=== PATIENT | female | born 1995 | race Caucasian/White ===

== ENCOUNTER → 2016-12-24 19:30 | Observation (INO) ==
[2016-12-24 19:50] LABS: Bilirubin,Urine Negative (Negative); Blood,Urine Negative (Negative); Clarity,Urine Cloudy (Clear); Color,Urine Yellow (Yellow); Glucose,Urine (UA) Normal (Normal); Ketones,Urine Negative (Negative); Leukocyte Esterase,Urine Small (Negative); Nitrite,Urine Negative (Negative); Protein,Urine Negative (Neg-Trace); Specific Gravity,Urine 1.014 (1.010-1.025); Urobilinogen,Urine Normal (Normal)
[2016-12-24 20:04] LABS: Amorphous Sediment,Urine Few (Few); Bacteria,Urine Few per hpf (None-Few); Hyaline Casts,Urine None Seen per lpf (None-Few); Squamous Epithelial Cell,Urine Moderate per lpf (None-Few)
[2016-12-24 20:05] LABS: RBC,Urine 0-3 per hpf (0-3); WBC,Urine 0-3 per hpf (0-3)
--- NOTE | 2016-12-24 20:15 | OB/GYN Progress Note ---
Date of Encounter: 12/24/16 Time of Encounter: 20:12 - Assessment and Plan (1) Abdominal pain affecting , antepartum Current Visit: Yes Status: Acute Pt states pain has decreased since arrival to triage. UA does not indicate UTI, Discharged home with rest and hydration. Discussed returning for evaluation if contractions greater than 6/hr., vaginal bleeding, or leaking of flluid. Pt in agreement with plan. (2) 20 weeks gestation of Current Visit: Yes Status: Acute Subjective - Subjective Interval history: 20+6 and states she has been having like a radiating pain that radiates from her mid abdomen throughout her back. Pt states she had one episode yesterday. Pt states she has been at work today and she has had it more frequently today than yesterday from moving around. She will feel tightness lasting sometimes 8- 10 minutes long that then releases. Pt states it happens a couple times an an hour. Reports good movement, denies vaginal bleeding and leaking of fluid. Antepartum ROS: new complaints, movement normal, no loss of fluid, no vaginal bleeding, no contractions Objective - Vital Signs Vital Signs: Intake and Output 12/24/16 12/24/16 12/24/16 07:59 15:59 23:59 Other: Weight 100 kg Patient Weight 12/24/16 23:59 Weight 100 kg - Exam FHR: auscultation normal FHR comments: present 140 Auscultation: bilateral: normal Abdomen: Present: normal appearance, soft, gravid Uterus: Present: normal - Labs Labs: Abnormal lab results Urine Clarity Cloudy (Clear) A 12/24/16 19:40 Ur Leukocyte Esterase Small (Negative) H 12/24/16 19:40 Ur Squamous Epith Cells Moderate per lpf (None-Few) H 12/24/16 19:40 Ur Culture Indicated? YES (NO) A 12/24/16 19:40
== END | disposition home or self-care (01) ==
LOC: 1NENULAB
PROVIDERS: ADMIT Advanced Practice Midwife; ATTEND Advanced Practice Midwife

== ENCOUNTER → 2017-01-16 13:06 | Observation (INO) ==
--- NOTE | 2017-01-16 13:00 | OB/GYN Progress Note ---
Date of Encounter: 01/16/17 Time of Encounter: 12:58 - Assessment and Plan (1) 24 weeks gestation of Current Visit: Yes Status: Acute (2) Vaginal discharge during in second trimester Current Visit: Yes Status: Acute Thick yellow white discharge noted on speculum exam, no pooling, nitrazine negative, ferning negative. Vaginosis panel obtained, will discharge to home and will call patient with results Subjective - Subjective Interval history: Patient states off and on over the last 2 days she has noticed her underwear has been wet and thought she was leaking, initially she attributed to increased perspiration, but today she was not doing any activity and notice her underwear was wet again. Patient state it does not smell like urine and she does not think she had uncontrolled urination. Patient reports movement, states it has been less than the previous, but fetus has been active today. No vaginal bleeding or complaints of itching, or other increased discharge Antepartum ROS: loss of fluid, movement normal, no vaginal bleeding, no contractions Objective - Exam FHR: auscultation normal FHR comments: 140 appropriate for gestational age Auscultation: bilateral: normal Abdomen: Present: normal appearance, soft, gravid Uterus: Present: normal Cervical dilation: Visually closed on speculum exam
[2017-01-16 13:07] LABS: Bilirubin,Urine Negative (Negative); Blood,Urine Negative (Negative); Clarity,Urine Clear (Clear); Color,Urine Yellow (Yellow); Glucose,Urine (UA) Normal (Normal); Ketones,Urine Negative (Negative); Leukocyte Esterase,Urine Moderate (Negative); Nitrite,Urine Negative (Negative); Protein,Urine Negative (Neg-Trace); Specific Gravity,Urine 1.012 (1.010-1.025); Urobilinogen,Urine Normal (Normal)
[2017-01-16 13:11] LABS: Amphetamine Screen,Urine Negative ng/mL (Cutoff=1000); Bacteria,Urine None Seen per hpf (None-Few); Barbiturate Screen,Urine Negative ng/mL (Cutoff=200); Benzodiazepines Screen,Urine Negative ng/mL (Cutoff=200); Cannabinoid Screen,Urine Negative ng/mL (Cutoff = 50); Cocaine Screen,Urine Negative ng/mL (Cutoff= 300); Hyaline Casts,Urine None Seen per lpf (None-Few); Opiate Screen,Urine Negative ng/mL (Cutoff=300); Phencyclidine Screen,Urine Negative ng/mL (Cutoff=25); RBC,Urine 0-3 per hpf (0-3); Squamous Epithelial Cell,Urine Many per lpf (None-Few)
[2017-01-16 13:58] LABS: Candida DNA ***DETECTED*** (Not Detect); Gardnerella DNA Not Detected (Not Detect); Trichomonas DNA Not Detected (Not Detect)
== END | disposition home or self-care (01) ==
LOC: 1NENULAB
PROVIDERS: ADMIT Obstetrics & Gynecology; ATTEND Obstetrics & Gynecology

== ENCOUNTER → 2017-03-03 13:07 | Observation (INO) ==
[2017-03-03 12:21] LABS: Bilirubin,Urine Negative (Negative); Blood,Urine Negative (Negative); Clarity,Urine Cloudy (Clear); Color,Urine Yellow (Yellow); Glucose,Urine (UA) Normal (Normal); Ketones,Urine Negative (Negative); Leukocyte Esterase,Urine Negative (Negative); Nitrite,Urine Negative (Negative); PH,Urine 7.5 pH Units (5.0-8.0); Protein,Urine Negative (Neg-Trace); Specific Gravity,Urine 1.015 (1.010-1.025); Urobilinogen,Urine Normal (Normal)
[2017-03-03 12:24] LABS: Bacteria,Urine Few per hpf (None-Few); Hyaline Casts,Urine None Seen per lpf (None-Few); RBC,Urine 0-3 per hpf (0-3); WBC,Urine 0-3 per hpf (0-3)
[2017-03-03 12:25] LABS: Amphetamine Screen,Urine Negative ng/mL (Cutoff=1000); Barbiturate Screen,Urine Negative ng/mL (Cutoff=200); Benzodiazepines Screen,Urine Negative ng/mL (Cutoff=200); Cannabinoid Screen,Urine Negative ng/mL (Cutoff = 50); Cocaine Screen,Urine Negative ng/mL (Cutoff= 300); Opiate Screen,Urine Negative ng/mL (Cutoff=300); Phencyclidine Screen,Urine Negative ng/mL (Cutoff=25)
[2017-03-03 12:36] LABS: Squamous Epithelial Cell,Urine Few per lpf (None-Few)
[2017-03-03 12:37] LABS: Amorphous Sediment,Urine Few (Few)
--- NOTE | 2017-03-03 12:54 | OB/GYN Progress Note ---
Date of Encounter: 03/04/17 Time of Encounter: 12:30 - Assessment and Plan (1) 30 weeks gestation of Status: Acute Nitrazine test was negative. No ferning observed on slide mount. Patient had a reactive NST test. UA was negative for infection. UDS was negative. - Patient will be discharged home. (2) Bacterial vaginosis Status: Acute Wet mount was positive for clue cells. - Metronidazole 500 mg PO BID 7 days (3) Vaginal yeast infection Status: Acute Wet mount positive for hyphae and budding yeast. - Tercanzole 45 gm cream daily #1 Subjective - Subjective Principal diagnosis: Labor evaluation Interval history: Patient is a 21 YO F at 30 weeks gestation that presents for labor evaluation. Patient says that 0830 am yesterday she woke up to find that her underwear was soaked. She says she noticed her underwear soaked gain this morning as well. She denies any regular contractions, but admits to some intermittent cramping this morning. She says that she had intercourse last night. She admits to good movement. She denies any vaginal bleeding. She denies any headaches, vision changes, chest pain, nausea, vomiting, fever, or dysuria. She does admit to diarrhea this morning but she denies any gross blood in her stool. HepBSAg: non-reactive (09/04/16) HIV Ag/Ab: non-reactive T. Pallidum: negative Rubella Ab: positive Varicella Ab: positive Blood Type: A+ Patient seen with the resident and agree with the above Antepartum ROS: loss of fluid, movement normal, no vaginal bleeding, no contractions Objective - Vital Signs Vital Signs: Intake and Output 03/03/17 03/03/17 03/03/17 00:59 07:59 15:59 Other: Weight 104.1 kg Patient Weight 03/03/17 22:59 Weight 104.1 kg BP: 124/72 HR: 100 FHR: 144 [place]: 24 - Exam FHR: auscultation normal Auscultation: bilateral: normal Abdomen: Present: normal appearance, soft, gravid Uterus: Present: normal, firm Cervical dilation: Closed/thick/NE Cervix effacement: thick station: -3 Comments: spec exam revealed nitrazine ferning pooling negative wth thick which discharge wet mount positive for BV and Isabela - Labs Labs: Abnormal lab results Urine Clarity Cloudy (Clear) A 03/03/17 12:07
== END | disposition home or self-care (01) ==
LOC: 1NENULAB
PROVIDERS: ADMIT Obstetrics & Gynecology; ATTEND Obstetrics & Gynecology

== ENCOUNTER → 2017-04-16 15:25 | Observation (INO) ==
[2017-04-16 12:18] LABS: Basophils # 0.2 K/mcL (0.0-0.2); Eosinophils # 0.1 K/mcL (0.0-0.6); Eosinophils % 0.4 %; Hematocrit 38.3 % (35.3-44.9); Hemoglobin 13.1 g/dL (11.5-15.4); Immature Granulocytes % 4.8 % (0-4); Lymphocytes % 10.6 %; Mean Corpuscular HGB Conc 34.2 g/dL (31.6-35.5); Mean Corpuscular Hemoglobin 30.5 pg (28.0-33.3); Mean Corpuscular Volume 89.3 fL (83.0-100.0); Monocytes # 1.2 K/mcL (0.0-1.3); Monocytes % 6.3 %; Neutrophils # 14.5 K/mcL (1.6-8.9); Platelet Count 142 K/mcL (140-400); Red Blood Count 4.29 M/mcL (3.82-4.97); Red Cell Distribution Width 14.8 % (11.5-14.5); Segmented Neutrophils % 76.9 %
[2017-04-16 12:24] LABS: Amphetamine Screen,Urine Negative ng/mL (Cutoff=1000); Barbiturate Screen,Urine Negative ng/mL (Cutoff=200); Benzodiazepines Screen,Urine Negative ng/mL (Cutoff=200); Cannabinoid Screen,Urine Negative ng/mL (Cutoff = 50); Cocaine Screen,Urine Negative ng/mL (Cutoff= 300); Opiate Screen,Urine Negative ng/mL (Cutoff=300); Phencyclidine Screen,Urine Negative ng/mL (Cutoff=25)
--- NOTE | 2017-04-16 12:49 | OB/GYN History & Physical ---
Date of Encounter: 04/16/17 Time of Encounter: 12:46 Assessment and Plan (1) Hypertension affecting in third trimester Current visit: Yes Status: Acute PIH labs - WNL NST - reactive category I tracing UDS - negative Serial blood pressures - mildly elevated. POC per consult with Dr Stock. Discharge home with Labetalol 100mg po BID Biweekly NSTs and weekly prenatals. Follow up in office on Saturday for NST and prn. PIH precautions given to patient. (2) Group B streptococcal carriage complicating Current visit: Yes Status: Acute (3) 37 weeks gestation of Current visit: Yes Status: Acute (4) Tachycardia Current visit: Yes Status: Acute IV fluids. Patient states she hasn't had a drink since yesterday History of Present Illness Chief complaint: Increased blood pressure HPI: Ms. Graham is a 22 year old at 37 weeks and 0 days gestation that presents to labor and delivery triage from the office. She has been having increased blood pressures at home for the past week that often are relieved by laying down. She c/o a headache that began on Saturday when she is upright, but is relieved by laying down. She had tunnel/blurry vision yesterday. She c/o mild upper respiratory symptoms that began last week. She states positive movement. She states she began madhuri this morning at 0600. She denies any vaginal bleeding or leaking of fluid. Labs: GBS positive Blood type A+ RPR negative HIV neg Hep B neg Varicella immune Rubella immune Past Med Surg Social Fam HX - Past Medical History Medical history: asthma Psychiatric history: no psych history - Social History Smoking Status: Never smoker Smokeless Tobacco Status: No Alcohol use: none Drug use: none - Family History Mother Living Status: Still Living Hx Family Cardiac Disorders: Yes Father Adopted: No Living Status: Still Living Hx Family Cardiac Disorders: Yes (unsure of diagnosis but has a history of heart issue) Hx Family Respiratory Disorders: No Hx Family Cancer: No Hx Family GI Disorders: No Hx Family Genitourinary Disorders: No Hx Family Endocrine Disorder: No Hx Family Musculoskeletal Disorders: No Hx Family Neuromuscular Disorders: No Hx Family Neurologic Disorders: No Hx Family HEENT Disorders: No Hx Family Autoimmune Disorders: No Hx Family Reproductive Disorders: No Hx Family Psychosocial Disorders: No Hx Family Medical Disorders: No Obstetrical History - Pregnancies : 2 Para: 0 Term: 0 : 0 Ab's: 1 Livin Medications and Allergies Aspirin 81 mg PO DAILY 01/16/17 [History] Calcium Carbonate [Calcium] 500 mg PO DAILY 01/16/17 [History] Ergocalciferol (VITAMIN D2) [Vitamin D] 400 unit PO DAILY 01/16/17 [History] Pnv Cmb#21/Iron/Folic Acid [ Complete Caplet] 1 tab PO DAILY 01/16/17 [ History] Labetalol [Trandate] 100 mg PO BID #60 tablet 04/16/17 [Rx] 3 Allergy/AdvReac Type Severity Reaction Status Date / Time hydrocortisone Allergy Hives Verified 12/24/16 19:58 Review of System OB All systems PM: reviewed and no additional remarkable complaints except as stated Exam - Constitutional Constitutional: well developed, well nourished, no acute distress, average body habitus - HEENT HEENT: Normocephaly, Mucus Membranes Moist - Lungs Respiratory exam: CTAB - Cardiovascular Cardiovascular exam: RRR, +S1, +S2 - Abdomen Abdomen: Present: bowel sounds normal, gravid, non tender - Extremities Extremities exam: normal capillary refill, normal inspection, radial pulses palpable and symmetrical Deep Tendon Reflex Grade: 1+ Diminished - Vagina Vagina: Present: normal moisture - Cervix Dilation: 0 (FT) Effacement: 0 (Full thickness) Station: -2 - Uterus Uterus exam: Present: normal size, normal contour. Absent: tender - Comments Comments: BLE edema - 2+ Facial edema noted. Results Result Diagrams: 04/16/17 12:00 04/16/17 12:00 Abnormal lab results WBC 18.9 K/mcL (4.3-11.1) H 04/16/17 12:00 RDW 14.8 % (11.5-14.5) H 04/16/17 12:00 Immature Gran % 4.8 % (0-4) H 04/16/17 12:00 Neutrophils # 14.5 K/mcL (1.6-8.9) H 04/16/17 12:00 All other labs normal. - VTE Reasons for not Prescribing Prophylaxis: Treatment not Indicated - Low risk for VTE
[2017-04-16 12:52] LABS: Alanine Aminotransferase 13 Units/L (7-52); Aspartate Amino Transferase 17 Units/L (13-39); BUN/Creatinine Ratio 6 (6-26); Blood Urea Nitrogen 4 mg/dL (6-20); Lactate Dehydrogenase 212 Units/L (140-271); Uric Acid 5.3 mg/dL (2.3-7.6); eGFR For African Americans > 60 (> 60); eGFR For Non-African Americans > 60 (> 60)
[2017-04-16 13:25] LABS: Bilirubin,Urine Negative (Negative); Blood,Urine Negative (Negative); Clarity,Urine Cloudy (Clear); Color,Urine Yellow (Yellow); Glucose,Urine (UA) Normal (Normal); Ketones,Urine Negative (Negative); Leukocyte Esterase,Urine Trace (Negative); Nitrite,Urine Negative (Negative); PH,Urine 7.5 pH Units (5.0-8.0); Protein,Urine Negative (Neg-Trace); Specific Gravity,Urine 1.012 (1.010-1.025); Urobilinogen,Urine Normal (Normal)
[2017-04-16 13:28] LABS: Bacteria,Urine Moderate per hpf (None-Few); Hyaline Casts,Urine None Seen per lpf (None-Few); RBC,Urine 0-3 per hpf (0-3); Squamous Epithelial Cell,Urine Many per lpf (None-Few)
[2017-04-16 14:01] LABS: Protein/Creatinine Ratio,Urine 0.19 mg/mg (0.00-0.20)
[~2017-04-16 15:25] MED LIST: Ringers Solution, Lactated 1,000 ML IVC SCH; Ringers Solution, Lactated 1,000 ML ONE
== END | disposition home or self-care (01) ==
LOC: 1NENULAB
PROVIDERS: ADMIT Obstetrics & Gynecology; ATTEND Obstetrics & Gynecology

== ENCOUNTER 2017-04-21 03:20 | Inpatient (IN) ==
[~2017-04-21 03:20] MED LIST changes: +*HR* Nalbuphine 20 MG/ML AMPUL IVP PRN; +Famotidine 20 MG/2 ML VIAL IVP PRN; +Metoclopramide 10 MG/2 ML VIAL IVP PRN; +Naloxone 0.4 MG/ML INJ IVP PRN; +Ondansetron 4 MG/2 ML VIAL IVP PRN; -Ringers Solution, Lactated 1,000 ML IVC SCH; -Ringers Solution, Lactated 1,000 ML ONE
[2017-04-21] MEDS ORDERED: Penicillin G Potassium 5,000,000 UNIT in 0.9 % Sodium Chloride Mini Bag 100 ML IVPB ONE (03:22)
[2017-04-21 03:34] LABS: Basophils # 0.2 K/mcL (0.0-0.2); Basophils % 0.9 %; Eosinophils # 0.2 K/mcL (0.0-0.6); Hematocrit 35.7 % (35.3-44.9); Hemoglobin 12.3 g/dL (11.5-15.4); Immature Granulocytes % 4.8 % (0-4); Lymphocytes # 2.8 K/mcL (0.6-4.6); Mean Corpuscular HGB Conc 34.5 g/dL (31.6-35.5); Mean Corpuscular Hemoglobin 30.8 pg (28.0-33.3); Mean Corpuscular Volume 89.5 fL (83.0-100.0); Mean Platelet Volume 10.6 fL (9.4-12.4); Monocytes # 1.2 K/mcL (0.0-1.3); Monocytes % 6.7 %; Neutrophils # 12.4 K/mcL (1.6-8.9); Platelet Count 165 K/mcL (140-400); Red Blood Count 3.99 M/mcL (3.82-4.97); Red Cell Distribution Width 14.5 % (11.5-14.5); Segmented Neutrophils % 70.6 %
[2017-04-21] MEDS: Ringers Solution, Lactated 1,000 ML IVC SCH ×2 (03:41→17:17)
--- NOTE | 2017-04-21 03:41 | OB/GYN History & Physical ---
Date of Encounter: 04/21/17 Time of Encounter: 03:36 Assessment and Plan (1) 37 weeks gestation of Current visit: No Status: Acute admit to labor and delivery for delivery (2) Group B streptococcal carriage complicating Current visit: No Status: Acute Penicillin prophylaxis (3) Tachycardia with heart rate 121-140 beats per minute Current visit: Yes Status: Acute continuous monitoring History of Present Illness Chief complaint: SROM HPI: Ms. Graham is a 22 year old female at 37w5d presents to labor and delivery with complaints of spontaneous rupture of membranes around 0100. Patient denies any color or odor to fluid. Patient reports irregular contractions. Patient denies any VB. Patient reports she was given Labetalol for Tachycardia and elevated bp in the office however, she has not taken it. Blood type:A+ Rubella: Immune Hep B: Nonreactive Group B:Positive Past Med Surg Social Fam HX - Past Medical History Source: patient Medical history: asthma Psychiatric history: no psych history - Past Surgical History Surgical History: other - Social History Smoking Status: Never smoker Smokeless Tobacco Status: No Alcohol use: none Drug use: none - Family History Mother Living Status: Still Living Hx Family Cardiac Disorders: Yes Father Adopted: No Living Status: Still Living Hx Family Cardiac Disorders: Yes Hx Family Respiratory Disorders: No Hx Family Cancer: No Hx Family GI Disorders: No Hx Family Genitourinary Disorders: No Hx Family Endocrine Disorder: No Hx Family Musculoskeletal Disorders: No Hx Family Neuromuscular Disorders: No Hx Family Neurologic Disorders: No Hx Family HEENT Disorders: No Hx Family Autoimmune Disorders: No Hx Family Reproductive Disorders: No Hx Family Psychosocial Disorders: No Hx Family Medical Disorders: No Obstetrical History - Pregnancies : 2 Para: 0 Term: 0 : 0 Ab's: 1 Livin Medications and Allergies Aspirin 81 mg PO DAILY 01/16/17 [History] Calcium Carbonate [Calcium] 500 mg PO DAILY 01/16/17 [History] Ergocalciferol (VITAMIN D2) [Vitamin D] 400 unit PO DAILY 01/16/17 [History] Pnv Cmb#21/Iron/Folic Acid [ Complete Caplet] 1 tab PO DAILY 01/16/17 [ History] Labetalol [Trandate] 100 mg PO BID #60 tablet 04/16/17 [Rx] 3 Allergy/AdvReac Type Severity Reaction Status Date / Time hydrocortisone Allergy Hives Verified 12/24/16 19:58 Review of System OB - Constitutional Constitutional ROS IM: no fever(s), no headache(s) - Cardiovascular Cardiovascular: no chest pain, no palpitations, no syncope - Gastrointestinal Gastrointestinal: no abdominal pain, no constipation, no cramping, no diarrhea, no heartburn, no nausea, no vomiting - Genitourinary Genitourinary: no abnormal vaginal bleeding, no dysuria, no flank pain, no urinary urgency, no vaginal discharge, no vaginal odor Exam - Constitutional Constitutional: well developed, well nourished, no acute distress, average body habitus - HEENT HEENT: Normocephaly, Mucus Membranes Moist - Neck Neck exam: full ROM, supple - Lungs Respiratory exam: CTAB - Cardiovascular Cardiovascular exam: +S1, +S2, tachycardia (125 bpm) - Abdomen Abdomen: Present: bowel sounds normal, gravid, non tender - Extremities Extremities exam: full ROM, normal capillary refill, normal inspection Deep Tendon Reflex Grade: 2+ Normal - Cervix Dilation: 1 Effacement: 50 Station: -2 - Uterus Uterus exam: Present: normal size, normal contour - Anus/Rectum Anus/Rectum: Present: normal perianal skin (145 bpm moderate variability +15x15 accel no decels noted cat 1 tracing) Results Result Diagrams: 04/21/17 03:25 Abnormal lab results WBC 17.6 K/mcL (4.3-11.1) H 04/21/17 03:25 Immature Gran % 4.8 % (0-4) H 04/21/17 03:25 Neutrophils # 12.4 K/mcL (1.6-8.9) H 04/21/17 03:25 All other labs normal.
[2017-04-21 03:46] LABS: Amphetamine Screen,Urine Negative ng/mL (Cutoff=1000); Barbiturate Screen,Urine Negative ng/mL (Cutoff=200); Benzodiazepines Screen,Urine Negative ng/mL (Cutoff=200); Cannabinoid Screen,Urine Negative ng/mL (Cutoff = 50); Cocaine Screen,Urine Negative ng/mL (Cutoff= 300); Opiate Screen,Urine Negative ng/mL (Cutoff=300); Phencyclidine Screen,Urine Negative ng/mL (Cutoff=25)
[2017-04-21 04:49] LABS: Alanine Aminotransferase 10 Units/L (7-52); Aspartate Amino Transferase 14 Units/L (13-39); BUN/Creatinine Ratio 10 (6-26); Blood Urea Nitrogen 6 mg/dL (6-20); Lactate Dehydrogenase 193 Units/L (140-271); Uric Acid 5.5 mg/dL (2.3-7.6); eGFR For African Americans > 60 (> 60); eGFR For Non-African Americans > 60 (> 60)
[2017-04-21] MEDS ORDERED: miSOPROStol 25 MCG TABLET ONE (08:26)
[2017-04-21] MEDS ORDERED: Oxytocin 20 units/ LR 1000 mL 20 UNIT/1,000 ML BAG IVC SCH (11:00)
[2017-04-21] MEDS: Penicillin G Potassium 2,500,000 UNIT in D5% in Water 100 ML IVPB SCH ×3 (12:04→20:49)
--- NOTE | 2017-04-21 17:19 | OB Labor Progress Note ---
Date of Encounter: 04/21/17 Time of Encounter: 08:00 Labor Progress Note - Subjective Subjective: Patient without any complaints - Cervix Cervix: /-3 Rudolph catheter placed - Heart Tones Heart Tones: heart tones 140s reactive - [place]: no contraction seen - Plan Plan: will do rudolph and cytotec to get labor going
--- NOTE | 2017-04-21 17:20 | OB Labor Progress Note ---
Date of Encounter: 04/21/17 Time of Encounter: 17:15 Labor Progress Note - Subjective Subjective: Patient getting uncomfortable probably has been out for sometime making minimal change. - Cervix Cervix: 3-4/80/-3 - Heart Tones Heart Tones: heart tones 140s reactive - [place]: IUPC placed contractions irregular every 2-3 minutes. - Plan Plan: Continue Pitocin plan is to anticipate vaginal delivery
[2017-04-21] MEDS ORDERED: Epidural Premix (fent/bupiv) 110 ML EP SCH (17:30)
[2017-04-21] MEDS ORDERED: Epidural Premix (fent/bupiv) 110 ML EP ONE (17:31)
--- NOTE | 2017-04-21 18:36 | Anesthesia Evaluation PreOp ---
Date of Encounter: 04/21/17 Time of Encounter: 18:35 - Past History Planned Operation: HEIDI Cardiac History: Denies any Significant Hx Pulmonary History: Denies Any Significant HX [employer] SPECIALIST History: Denies Any Significant HX Other Medical History: Denies Any Significant HX Anesthesia History: No Prior Anesthetic Complications : Yes Test: Positive Alcohol Use: none Drug use: none Medications and Allergies Aspirin 81 mg PO DAILY 01/16/17 [History] Calcium Carbonate [Calcium] 500 mg PO DAILY 01/16/17 [History] Ergocalciferol (VITAMIN D2) [Vitamin D] 400 unit PO DAILY 01/16/17 [History] Pnv Cmb#21/Iron/Folic Acid [ Complete Caplet] 1 tab PO DAILY 01/16/17 [ History] Labetalol [Trandate] 100 mg PO BID #60 tablet 04/16/17 [Rx] 3 Allergy/AdvReac Type Severity Reaction Status Date / Time hydrocortisone Allergy Hives Verified 12/24/16 19:58 - Meds/Allergy Pre-op Review Medications Reviewed: Yes Allergies Reviewed: Yes Beta Blockers on Current Med List: No Anesthesia Results - Labs 04/21/17 03:25 04/21/17 04:13 Anesthesia Exam NPO (# of Hours): MN Pain Scale: 8 - HEENT Pupil (Motor): Pupils equal Mallampati: II Teeth: Normal Oral Opening: Greater than 3 - [facility]S SPECIALIST LOC: Oriented [employer] SPECIALIST Motor: Normal RUE, Normal LUE, Normal RLE, Normal LLE, Normal Face [employer]IST Sensory: Normal: RUE, LUE, RLE, LLE, Face - Cardiac Rhythm: Regular Murmur: None JVD: No Carotid Bruit: No - Pulmonary Breath Sounds: bilateral Clear Respiratory Effort: Symmetrical Anesthesia Assess/Plan ASA Score: 2 Modified Alaina Scale for Level of Consciousness: Cooperative, oriented, and tranquil Anesthetic Plan: Regional Autologous Blood: No Monitoring Plan: Standard Monitors
--- NOTE | 2017-04-21 18:40 | Anesthesia Procedures ---
Date of Encounter: 04/21/17 Time of Encounter: 18:15 Procedures: Anesthesia - Epidural/Spinal Patient ID/Chart reviewed: Yes Patient examined: Yes OB Eval: Gestational age: 37.5 OB Eval: : 2 OB Eval: Hx Para: 0 OB Eval: Dilated at (cm): 5 OB Eval: Contractions: Non-stressed pattern Consent Obtained: Yes Supplemental Oxygen: None/Room Air Site Prep: Aseptic Technique, Sterile prep and drape, Povidone-Iodine 1% Patient position: upright Local Anesthetic: Lidocaine 1% Amount of Local Anesthetic used: 3 Touhy Needle Gauge: 18 Touhy Needle Depth (cm): 8 Catheter Depth at Skin (cm): 12 Test Dose (1.5% Lido + Epi): Volume given (mls): 3 Test Dose Result: Negative Infusion Rate (mls/hr): [address]: Tegaderm, Tape Interspace Used: L4-L5 Loss of Resistance (NARESH): Yes Blood: No CSF: No Paresthesia: No Vitals + FHT's: stable throughout see nursing notes
--- NOTE | 2017-04-21 20:16 | OB Labor Progress Note ---
Date of Encounter: 04/21/17 Time of Encounter: 20:15 Labor Progress Note - Subjective Subjective: Patient still not feeling any discomfort. - Cervix Cervix: 3/80/-3 ball - Heart Tones Heart Tones: heart tones 140s reactive with occasional variable decelerations and what looks like some subtle late decelerations. - Olive Olive: Contractions every 2 minutes and adequate - Plan Plan: Did discuss with the patient that she has made no cervical change for over 8 hours and the head is still at a -3 ballotable station did inform her not comfortable with the strip at this point I think she is having some variables and late decelerations the patient is not wanting to do a section at this point. She states she wants me to give her some more time did advise her to watch a little bit longer but it these decelerations become more persistent we will call a section. Also informed if she is made no cervical change in the next 2 hours that will be at 10 hours of no cervical change and again I would highly recommend we proceed on with section. She is having adequate contractions to the point she should be making some kind of change either by dilation or by the Center the head.
--- NOTE | 2017-04-21 22:42 | OB Labor Progress Note ---
Date of Encounter: 04/21/17 Time of Encounter: 22:40 Labor Progress Note - Subjective Subjective: Patient did not make any cervical change and started to run a low-grade temperature. Had a long discussion with the patient about the necessity to proceed on with a section due to failure to progress. She continues to have what looks like late decelerations with each contraction and informed its time to get the baby out. Patient is okay she just wanted to give it a try. - Cervix Cervix: 3/80/-3 - Heart Tones Heart Tones: heart tones 150's reactive with what appears to be variable decelerations with late component. - [place]: Contractions every 2-4 minutes now becoming irregular uterus slightly tender - Plan Plan: Pitocin has been turned off patient be prepped for primary low transverse section.
[2017-04-21] MEDS ORDERED: ceFAZolin 3,000 MG in Water for inj. (sterile) 30 ML IVP ONE (22:43)
[2017-04-21] MEDS ORDERED: *HR* Oxytocin 10 UNIT/ML VIAL IM ONE (22:48)
[2017-04-21] MEDS ORDERED: Chloroprocaine/PF 20 ML VIAL INFILT ONE (22:49)
[2017-04-21] MEDS ORDERED: *HR* Phenylephrine 10 MG/ML VIAL ONE (23:01)
[2017-04-21] MEDS ORDERED: Ringers Solution, Lactated 1,000 ML ONE (23:01)
[2017-04-21] MEDS ORDERED: *HR* Propofol 200 MG/20 ML VIAL IVP ONE ×2 (23:12→23:16)
[2017-04-21] MEDS ORDERED: *HR* Succinylcholine 200 MG/10 ML VIAL IVP ONE (23:13)
[2017-04-21] MEDS ORDERED: *HR* Morphine Sulfate/PF 5 MG/10 ML AMPUL ONE ×2 (23:27→23:44)
[2017-04-21] MEDS ORDERED: Dexamethasone 4 MG/ML VIAL ONE (23:59)
[2017-04-21] MEDS ORDERED: Ondansetron 4 MG/2 ML VIAL ONE (23:59)
--- NOTE | 2017-04-22 00:16 | OB/GYN Procedure Note ---
Section - Date of procedure: 04/22/17 Preop diagnosis: other (Intrauterine at 37-5/7 weeks, prolonged rupture membranes, GBS positive, arrest of descent, cephalopelvic disproportion) Post-op diagnosis: same (With persistent occiput posterior presentation) Procedure: primary low transverse Surgeon: Paco Hunter Estimated blood loss (cc): 800 Anesthesiologist: Kemal Villalpando Bucket Hooker: Va Villalpando Anesthesia Type: General section complications: none Disposition: L&D Recovery Room Specimens: Placenta - Infant (s) Infant A Infant Delivery Date: 04/21/17 Infant Delivery Time: 23:23 Presentation: vertex Position: LOP Route of delivery: other ( section) Gender: Male Viability: Viable Pounds: 8 Ounces: 3 Gram Weight: 3.71 kg at 1 minute: 8 at 5 minutes: 9 Shoulder Dystocia: not encountered Specimens collected: cord blood Placenta: spontaneous - Narrative Narrative: Patient is a 19 year old 1 para 0 at 37-5/7 weeks who presented to labor and delivery complaining of spontaneous rupture membranes at approximately 1 AM on the . Patient upon arrival to labor and delivery was noted to be grossly ruptured but was not madhuri was closed thick and high. She did not want anything done initially to see if she could go into labor on her own. Approximately 4-5 hours later she had made no cervical change and was not madhuri she had been started on antibiotics for GBS positive status. We recommended starting on Cytotec by mouth and we placed a Sanchez catheter. The Sanchez catheter fell out approximately 3 hours later patient was 3 cm. Patient did not progress past 3 cm we did internalize her started on Pitocin she was having adequate contractions for prolonged period of time with no cervical change. Patient started to have variable decelerations with a late component we did discuss this with the patient that I was concerned that the baby was not coming down and the strip was not looking good and recommended section she initially did not want to do that one immediately give her a little bit more time we allowed for 2 more hours then called the section because she still was 3 cm and 80% -3 ballotable which she had been for over 10 hours. Patient did consent at this time to proceed on with a primary section. Procedure: Patient was taken the operating room where she was placed in the dorsal supine position prepped and draped in usual fashion. Epidural anesthesia was found to be in adequate patient was feeling what I was doing and general anesthesia was administered. Once the patient was asleep a Pfannenstiel incision was made with a scalpel and carried down through the underlying tissue until the fascia was identified. The fascia was nicked in the midline extended laterally with the Carrizales scissors. The superior and inferior edges of the fascia grasped tented up and dissected off the rectus muscles. Rectus muscles were in midline parietal peritoneum was identified tented up and entered sharply. This was extended superiorly and inferiorly with Metzenbaum scissors. The bladder blade was inserted the vesicouterine peritoneum was identified tented up and entered sharply. This was extended laterally the bladder flap was then created digitally. The lower uterine segment was incised with the scalpel extended laterally with digital manipulation. Membranes were ruptured clear fluid noted infant's head was then brought up through the incision and the baby was noted to be in a left occiput posterior presentation. The infant was fully delivered cord was clamped and cut was handed off to waiting pediatric team. Cord blood was collected placenta was then spontaneously delivered and the uterus was exteriorized and then was cleaned of all clots and debris. We changed our outer gloves at this point then the lower uterine segment was closed using an 0 Vicryl in a running locking stitch by a 2 layer closure. Good hemostasis was noted the uterus was then returned to the abdomen the gutters were cleaned of all clots and debris then copiously irrigated. No active bleeding was noted the fascia was closed using a #1 stratafix suture in a running stitch and the skin was closed using a 4-0 Vicryl in a subcuticular manner. The donell dressing were then applied. All needles last and sponge counts were correct 3 she did receive 2 g of Ancef preoperatively. During the procedure patient was noted be very hot was running a temperature we will continue antibiotics for another 24 hours along with a ZONING ADMINISTRATOR pump. Patient was taken the recovery room in stable condition.
[2017-04-22] MEDS ORDERED: Ondansetron 4 MG/2 ML VIAL IVP ONE (00:24)
[2017-04-22] MEDS ORDERED: *HR* HYDROmorphone (PF) 1 MG/ML SYRINGE IVP PRN (00:24)
[2017-04-22] MEDS ORDERED: *HR* Promethazine 25 MG/ML VIAL IVP PRN (00:24)
[2017-04-22] MEDS ORDERED: *HR* Morphine 2 MG/ML SYRINGE IVP PRN (00:24)
[2017-04-22] MEDS ORDERED: Metoclopramide 10 MG/2 ML VIAL IVP PRN (00:51)
[2017-04-22] MEDS ORDERED: Acetaminophen 325 MG TABLET PO PRN (00:51)
[2017-04-22] MEDS ORDERED: Simethicone 80 MG TAB.CHEW PO PRN (00:51)
[2017-04-22] MEDS ORDERED: Ringers Solution, Lactated 1,000 ML IVC SCH (00:51)
[2017-04-22] MEDS ORDERED: Oxytocin 20 units/ LR 1000 mL 20 UNIT/1,000 ML BAG IVC SCH ×2 (00:51)
[2017-04-22] MEDS ORDERED: Sennosides 8.6 MG TABLET PO PRN (00:51)
[2017-04-22] MEDS ORDERED: Ondansetron 4 MG/2 ML VIAL IVP PRN (00:51)
[2017-04-22] MEDS ORDERED: *HR* HYDROmorphone 20 MG/20 ML PCA IVC PRN (00:51)
[2017-04-22] MEDS ORDERED: CeFAZolin Premix DUPLEX 2,000 MG/50 ML BAG IVPB SCH (01:00)
[2017-04-22 06:30] LABS: Basophils # 0.1 K/mcL (0.0-0.2); Basophils % 0.8 %; Eosinophils % 0.1 %; Hematocrit 32.9 % (35.3-44.9); Hemoglobin 11.2 g/dL (11.5-15.4); Immature Granulocytes % 3.1 % (0-4); Lymphocytes # 1.7 K/mcL (0.6-4.6); Lymphocytes % 9.5 %; Mean Corpuscular Hemoglobin 30.4 pg (28.0-33.3); Mean Corpuscular Volume 89.2 fL (83.0-100.0); Mean Platelet Volume 10.6 fL (9.4-12.4); Monocytes # 1.2 K/mcL (0.0-1.3); Monocytes % 6.4 %; Neutrophils # 14.5 K/mcL (1.6-8.9); Platelet Count 167 K/mcL (140-400); Red Blood Count 3.69 M/mcL (3.82-4.97); Red Cell Distribution Width 14.6 % (11.5-14.5); Segmented Neutrophils % 80.1 %
[2017-04-22] MEDS: CeFAZolin Premix DUPLEX 2,000 MG/50 ML BAG IVPB SCH ×3 (06:57→23:54)
[2017-04-22] MEDS ORDERED: *HR* OxyCODONE/APAP 5/325 TABLET PO PRN (08:06)
[2017-04-22] MEDS ORDERED: *HR* OxyCODONE/APAP 10/325 TABLET PO PRN (08:07)
--- NOTE | 2017-04-22 08:11 | OB/GYN Progress Note ---
Date of Encounter: 04/22/17 Time of Encounter: 08:00 - Assessment and Plan (1) Status post section Current Visit: Yes Status: Acute Subjective - Subjective Interval history: Patient doing well this morning having some pain but not as much as she thought. Patient would like AIRPLANE NAVIGATOR stopped states every time she pushes the Button causes severe nausea vomiting. Patient still nauseated we will advance diet slowly. The AIRPLANE NAVIGATOR now placed on oral pain medication with a catheter out after 12 hours and encourage ambulation. The patient was stable and a.m. we will discharge home at that time. Patient was running a fever during surgery we will continue the antibiotics for 24 hours before stopping. Patient reports: pain well controlled, nauseated [place]: doing well Objective - Vital Signs Latest vital signs: Vital Signs Temp Pulse Resp BP Pulse Ox 04/22/17 05:14 98.6 F 86 16 112/77 98 04/22/17 04:02 98 F 86 16 133/75 96 04/22/17 03:18 97.7 F 97 16 133/84 100 04/22/17 02:30 98.2 F 96 16 130/70 97 Intake and Output 04/21/17 04/22/17 04/22/17 23:59 07:59 15:59 Intake Total 100 / 100 Output Total 2900 / 2900 Balance 100 / 100 -2900 / -2900 Intake: IV Fluids 100 / 100 Pfizerpen 2,500,000 UNIT In 100 / 100 Dextrose 5% 100 ML @ 200 mls/hr IVPB Q4HR [facility] Rx#:[id number] Output: Urine 1000 / 1000 Catheter 1900 / 1900 Other: Stool Characteristics Normal for Patient Weight 106.4 kg Patient Weight 04/22/17 23:59 Weight 106.4 kg - Exam Chest: Normal S1, Normal S2 Extremities: Present: normal Abdomen: Present: soft Incision: Present: dry, intact Uterus: Present: normal - Labs Labs: Laboratory Results - last 24 hr 04/22/17 05:48 WBC 18.0 H RBC 3.69 L Hgb 11.2 L Hct 32.9 L MCV 89.2 MCH 30.4 MCHC 34.0 RDW 14.6 H Plt Count 167 MPV 10.6 Immature Gran % 3.1 Seg Neutrophils % 80.1 Lymphocytes % 9.5 Monocytes % 6.4 Eosinophils % 0.1 Basophils % 0.8 Neutrophils # 14.5 H Lymphocytes # 1.7 Monocytes # 1.2 Eosinophils # 0.0 Basophils # 0.1
[2017-04-22] MEDS: Prenatal Vit/FA 1 EACH TABLET PO SCH (09:00)
[2017-04-22] MEDS: Ibuprofen 600 MG TABLET PO PRN ×3 (11:30→23:54)
[2017-04-23 06:32] LABS: Basophils # 0.2 K/mcL (0.0-0.2); Eosinophils # 0.3 K/mcL (0.0-0.6); Eosinophils % 1.8 %; Hematocrit 31.5 % (35.3-44.9); Hemoglobin 10.5 g/dL (11.5-15.4); Immature Granulocytes % 4.4 % (0-4); Lymphocytes # 2.8 K/mcL (0.6-4.6); Lymphocytes % 18.5 %; Mean Corpuscular HGB Conc 33.3 g/dL (31.6-35.5); Mean Corpuscular Hemoglobin 30.3 pg (28.0-33.3); Mean Corpuscular Volume 90.8 fL (83.0-100.0); Mean Platelet Volume 10.3 fL (9.4-12.4); Monocytes # 1.2 K/mcL (0.0-1.3); Neutrophils # 10.2 K/mcL (1.6-8.9); Platelet Count 152 K/mcL (140-400); Red Blood Count 3.47 M/mcL (3.82-4.97); Red Cell Distribution Width 14.7 % (11.5-14.5); Segmented Neutrophils % 66.3 %
[2017-04-23] MEDS: CeFAZolin Premix DUPLEX 2,000 MG/50 ML BAG IVPB SCH (06:53)
[2017-04-23] MEDS: Ibuprofen 600 MG TABLET PO PRN ×3 (08:10→20:38)
[2017-04-23] MEDS: Prenatal Vit/FA 1 EACH TABLET PO SCH (08:10)
--- NOTE | 2017-04-23 08:28 | Discharge Summary ---
Date of Encounter: 04/24/17 Time of Encounter: 07:20 - Discharge Diagnosis (1) 37 weeks gestation of Priority: Primary Status: Acute (2) Group B streptococcal carriage complicating Priority: Secondary Status: Acute (3) Hypertension affecting in third trimester Priority: Secondary Status: Acute Comments: Bp is stable will not discharge on antihypertensive medication (4) Status post section Priority: Secondary Status: Acute Comments: Pain well managed on po pain medication, tolerates po diet, (5) anemia Status: Acute Comments: Will discharge home on iron - Discharge Medications Prescriptions: Ibuprofen [Motrin] 600 mg PO Q6HR PRN #60 tablet PRN Reason: Cramping OxyCODONE/APAP 5/325 [Percocet 5/325 MG] 1 each PO Q6HR PRN #28 tablet PRN Reason: Mild Pain Azithromycin [Zithromax Tri-Deejay] 500 mg PO BID #10 tablet Breast Pump [BREAST PUMP] 1 each .ROUTE AD #1 each Cephalexin [Keflex] 500 mg PO BID #11 capsule Docusate [Colace] 100 mg PO BID PRN #20 capsule PRN Reason: constipation Labetalol [Trandate] 100 mg PO BID #60 tablet Home Medications: Aspirin 81 mg PO DAILY 01/16/17 [History] Calcium Carbonate [Calcium] 500 mg PO DAILY 01/16/17 [History] Ergocalciferol (VITAMIN D2) [Vitamin D] 400 unit PO DAILY 01/16/17 [History] Pnv Cmb#21/Iron/Folic Acid [ Complete Caplet] 1 tab PO DAILY 01/16/17 [ History] Breast Pump [BREAST PUMP] 1 each .ROUTE AD #1 each 04/23/17 [Rx] Cephalexin [Keflex] 500 mg PO BID #11 capsule 04/23/17 [Rx] Docusate [Colace] 100 mg PO BID PRN #20 capsule 04/23/17 [Rx] Ibuprofen [Motrin] 600 mg PO Q6HR PRN #60 tablet 04/23/17 [Rx] Labetalol [Trandate] 100 mg PO BID #60 tablet 04/23/17 [Rx] OxyCODONE/APAP 5/325 [Percocet 5/325 MG] 1 each PO Q6HR PRN #28 tablet 04/23/17 [Rx] Simethicone [Gas-X] 80 mg PO TID PRN tab.chew 04/23/17 [Rx] Azithromycin [Zithromax Tri-Deejay] 500 mg PO BID #10 tablet 04/24/17 [Rx] Lanolin [Lansinoh] 1 appl TP TID PRN oint...g. 04/24/17 [Rx] Mupirocin [Bactroban Oint] 1 appl TP BID PRN tube 04/24/17 [Rx] Allergies/Adverse Reactions: 3 Allergy/AdvReac Type Severity Reaction Status Date / Time hydrocortisone Allergy Hives Verified 12/24/16 19:58 Data Procedures and tests throughout hospitalization: Laboratory Tests 04/21/17 04/21/17 04/21/17 03:25 03:25 04:13 WBC 17.6 H RBC 3.99 Hgb 12.3 Hct 35.7 MCV 89.5 MCH 30.8 MCHC 34.5 RDW 14.5 Plt Count 165 MPV 10.6 Immature Gran % 4.8 H Seg Neutrophils % 70.6 Lymphocytes % 16.0 Monocytes % 6.7 Eosinophils % 1.0 Basophils % 0.9 Neutrophils # 12.4 H Lymphocytes # 2.8 Monocytes # 1.2 Eosinophils # 0.2 Basophils # 0.2 BUN 6 Creatinine 0.58 L Est GFR ( Amer) > 60 Est GFR (Non-Af Amer) > 60 BUN/Creatinine Ratio 10 Uric Acid 5.5 AST 14 ALT 10 Lactate Dehydrogenase 193 Urine Opiates Screen Negative Ur Barbiturates Screen Negative Ur Phencyclidine Scrn Negative Ur Amphetamines Screen Negative U Benzodiazepines Scrn Negative Urine Cocaine Screen Negative U Marijuana (THC) Screen Negative 04/22/17 04/23/17 05:48 06:05 WBC 18.0 H 15.4 H RBC 3.69 L 3.47 L Hgb 11.2 L 10.5 L Hct 32.9 L 31.5 L MCV 89.2 90.8 MCH 30.4 30.3 MCHC 34.0 33.3 RDW 14.6 H 14.7 H Plt Count 167 152 MPV 10.6 10.3 Immature Gran % 3.1 4.4 H Seg Neutrophils % 80.1 66.3 Lymphocytes % 9.5 18.5 Monocytes % 6.4 8.0 Eosinophils % 0.1 1.8 Basophils % 0.8 1.0 Neutrophils # 14.5 H 10.2 H Lymphocytes # 1.7 2.8 Monocytes # 1.2 1.2 Eosinophils # 0.0 0.3 Basophils # 0.1 0.2 BUN Creatinine Est GFR ( Amer) Est GFR (Non-Af Amer) BUN/Creatinine Ratio Uric Acid AST ALT Lactate Dehydrogenase Urine Opiates Screen Ur Barbiturates Screen Ur Phencyclidine Scrn Ur Amphetamines Screen U Benzodiazepines Scrn Urine Cocaine Screen U Marijuana (THC) Screen Labs on day of discharge: Labs from last 24 hours 04/23/17 06:05 WBC 15.4 H RBC 3.47 L Hgb 10.5 L Hct 31.5 L MCV 90.8 MCH 30.3 MCHC 33.3 RDW 14.7 H Plt Count 152 MPV 10.3 Immature Gran % 4.4 H Seg Neutrophils % 66.3 Lymphocytes % 18.5 Monocytes % 8.0 Eosinophils % 1.8 Basophils % 1.0 Neutrophils # 10.2 H Lymphocytes # 2.8 Monocytes # 1.2 Eosinophils # 0.3 Basophils # 0.2 Date of admission: 04/21/17 03:20 Primary care physician: PCP NONE Discharging clinician: Michaela José Anticipated date of discharge: 04/24/17 - Patient Status Disposition: Home, Self-Care Condition: Good Functional capacity at discharge: independent ambulation Overall status at discharge: patient is progressing back to baseline - Discharge Instructions Follow Up With: NONE,PCP [Primary Care Provider] - Paco Hunter DO [Partnered Physician] - - Diet and Activity Activity: increase activity as tolerated Diet: regular diet 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 Graham is a 22 year old female at 37w5d with complications of PIH presented to labor and deliver for SROM and underwent CS 2/ 2 failure to progress. Patient was given Cefazolin for 48 hrs as patient had a fever during surgery. Patient discharged home with Keflex and Azithromycin. Patient progressed to oral pain medications and has been ambulating and tolerating a regular diet with N/V. Patient will be sent home with Percocet for less than 7 days and OARRs was checked and consistent. Patient had gestational HTN but for the last 48 hrs has been normotensive therefore does not need BP medication at this time. Will recheck BP at f/u appointment in [address] Hunter. Time Attestation: Total time spent providing and/or coordinating discharge services: Exam - Constitutional Vitals: Temp Pulse Resp BP Pulse Ox 98.3 F 80 16 120/75 97 04/23/17 07:40 04/23/17 07:40 04/23/17 07:40 04/23/17 07:40 04/23/17 07:40 General appearance IM: A&O X 3, pleasant, no acute distress - Respiratory Respiratory exam: Present: CTAB - Cardiovascular Cardiovascular exam IM: Present: RRR - GI/Abdominal GI/Abdominal exam IM: normal bowel sounds, soft Incision: normal, erythematous, dry, dressed - Uterine Tone: Firm Uterus Position: At Umbilicus - Extremities Exam Extremities exam IM: Present: normal inspection, pedal edema - Neurological Exam Neurological exam: normal gait, oriented X3 - Psychiatric Additional comments: Pt reports good mood. States occasional crying, but feels mood is good. - VTE Documentation of Mechanical Device: Intermittent pneumatic compression device
--- NOTE | 2017-04-23 09:01 | OB/GYN Progress Note ---
Date of Encounter: 04/23/17 Time of Encounter: 10:05 - Assessment and Plan (1) 37 weeks gestation of Current Visit: No Status: Acute - Continue to encourage , consult in - Ice backs to perineum prn - continue scheduled motrin 600mg Q6hrs and prn percocet 5/325 for pain - anticipate d/c home tomorrow (2) Group B streptococcal carriage complicating Current Visit: No Status: Acute antibiotics given prophylactically (3) Hypertension affecting in third trimester Current Visit: No Status: Acute Currently well controlled, not taking BP medication will reevaluate tomorrow if need labetolol for home. (4) Status post section Current Visit: Yes Status: Acute Fever during will switch from Cefazolin IV to Keflex po. Subjective - Subjective Principal diagnosis: s/p CS Interval history: Patient states that pain is well controlled. Her only concern today is and decrease milk production. Patient has not been taking the blood pressure medication but has had fairly well controlled BP will discuss tomorrow if will continue to prescribe BP. Patient reports: appetite normal, voiding normally, pain well controlled [place]: doing well, other ( ) Objective - Vital Signs Latest vital signs: Vital Signs Temp Pulse Resp BP Pulse Ox 04/23/17 07:40 98.3 F 80 16 120/75 97 04/22/17 19:30 98.4 F 96 14 124/83 98 04/22/17 17:17 97.9 F 99 12 140/94 98 Intake and Output 04/22/17 04/23/17 04/23/17 23:59 07:59 15:59 Intake Total 500 / 500 Output Total 500 / 500 Balance -500 / -500 500 / 500 Intake: IV Fluids 50 / 50 Ancef Premix DUPLEX 2,000 mg In 50 / 50 50 ml @ 500 mls/hr IVPB Q8H [facility] Rx#:[id number] Oral 450 / 450 Output: Urine 500 / 500 - Exam Lungs: bilateral: normal Extremities: Present: edema Abdomen: Present: normal appearance Incision: Present: normal, erythematous, dry, intact Uterus: Present: normal - Labs Labs: Laboratory Results - last 24 hr 04/23/17 06:05 WBC 15.4 H RBC 3.47 L Hgb 10.5 L Hct 31.5 L MCV 90.8 MCH 30.3 MCHC 33.3 RDW 14.7 H Plt Count 152 MPV 10.3 Immature Gran % 4.4 H Seg Neutrophils % 66.3 Lymphocytes % 18.5 Monocytes % 8.0 Eosinophils % 1.8 Basophils % 1.0 Neutrophils # 10.2 H Lymphocytes # 2.8 Monocytes # 1.2 Eosinophils # 0.3 Basophils # 0.2
[2017-04-23] MEDS: cephALEXin 500 MG CAPSULE PO SCH (20:37)
[2017-04-23] MEDS ORDERED: Lanolin 7 G OINT...G. TP PRN (21:14)
[2017-04-24] MEDS: Ibuprofen 600 MG TABLET PO PRN ×2 (07:08→13:42)
[2017-04-24] MEDS: Prenatal Vit/FA 1 EACH TABLET PO SCH (07:55)
[2017-04-24] MEDS: cephALEXin 500 MG CAPSULE PO SCH (07:55)
[2017-04-24 08:27] VITALS: BP 112/74
== END 2017-04-24 15:59 | disposition home or self-care (01) | DRG 766 ==
LOC: 1NENULAB → 1NENUOBS 04-22 03:04
PROVIDERS: ADMIT Advanced Practice Midwife; ATTEND Advanced Practice Midwife